=== PATIENT | male | born 1975 | race Caucasian/White ===

== ENCOUNTER 2018-01-05 13:50 | Inpatient (IN) | payer OTHER ==
[2018-01-05 14:40] LABS: ADD MAN DIFF? NO
[2018-01-05 14:47] LABS: BASOPHILS % 0.2 % (0.0-2.0); EOSINOPHILS # 0.1 10^3/ul (0.0-0.5); EOSINOPHILS % 1.1 % (0.0-7.0); HEMOGLOBIN 11.3 g/dl (14.0-18.0); LYMPHOCYTES # 1.1 10^3/ul (0.8-2.9); LYMPHOCYTES % 9.7 % (15.0-51.0); MEAN CORPUSCULAR HEMOGLOBIN 24.8 pg (29.0-33.0); MEAN CORPUSCULAR HGB CONC 32.3 g/dl (32.0-37.0); MEAN CORPUSCULAR VOLUME 76.8 fl (82.0-101.0); MEAN PLATELET VOLUME 8.6 fl (7.4-10.4); MONOCYTE # 0.8 10^3/ul (0.3-0.9); MONOCYTES % 7.5 % (0.0-11.0); NEUTROPHIL # 8.8 10^3/ul (1.6-7.5); PLATELET COUNT 491 10^3/UL (140-415); RED BLOOD COUNT 4.56 10^6/ul (4.70-6.10); RED CELL DISTRIBUTION WIDTH 14.7 % (11.5-14.5)
[2018-01-05 14:47] LABS: WHITE BLOOD COUNT 10.8 10^3/ul (4.8-10.8)
[2018-01-05 15:08] LABS: LACTIC ACID 1.1 mmol/L (0.5-2.0)
[2018-01-05 15:08] LABS: ALANINE AMINOTRANSFERASE 46 IU/L (13-69); ALBUMIN 4.2 g/dl (3.3-4.9); ALBUMIN/GLOBULIN RATIO 0.93; ALKALINE PHOSPHATASE 135 IU/L (42-121); ANION GAP 17 (8-16); ASPARTATE AMINO TRANSFERASE 35 IU/L (15-46); BILIRUBIN,INDIRECT 0.8 mg/dl (0-1.1); BILIRUBIN,TOTAL 0.8 mg/dl (0.2-1.3); BLOOD UREA NITROGEN 14 mg/dl (7-20); CALCIUM 9.1 mg/dl (8.4-10.2); CARBON DIOXIDE 26 mmol/L (21-31); CHLORIDE 99 mmol/L (97-110); CREATININE 0.72 mg/dl (0.61-1.24); GLUCOSE 108 mg/dl (70-220); POTASSIUM 3.8 mmol/L (3.5-5.1); SODIUM 138 mmol/L (135-144); TOTAL PROTEIN 8.7 g/dl (6.1-8.1)
[2018-01-05 15:14] LABS: INR 1.08; PROTIME 14.1 Sec (11.9-14.9); PT RATIO 1.1
[2018-01-05 15:15] LABS: PARTIAL THROMBOPLASTIN TIME 31.1 Sec (25.0-35.0)
[2018-01-05 15:20] LABS: B-TYPE NATRIURETIC PEPTIDE 42 PG/ML (0-125); TROPONIN-I < 0.010 ng/ml (0.000-0.120)
[2018-01-05] MEDS: CEFTRIAXONE 1 GM/50 ML (PMX) 50 ML IVPB (15:28)
[2018-01-05] MEDS ORDERED: PIPER-TAZO 3.375 GM IV (PMX) 100 ML IVPB (15:30)
[2018-01-05] MEDS ORDERED: NACL 0.9% 3 ML SYG IV (16:00)
[2018-01-05] MEDS ORDERED: ONDANSETRON 4 MG INJ IV (16:00)
[2018-01-05] MEDS ORDERED: MAGNESIUM HYDROXIDE 30ML CUP PO (16:00)
[2018-01-05] MEDS ORDERED: LORAZEPAM 0.5 MG TAB PO (16:00)
[2018-01-05] MEDS ORDERED: DOCUSATE SODIUM 100 MG CAP PO (16:00)
[2018-01-05] MEDS: VANCOMYCIN 1 GM (PMX) 250 ML IVPB ×2 (16:00→20:32)
[2018-01-05] MEDS ORDERED: VANCOMYCIN IV PER PHARMACY XX (16:00)
[2018-01-05] MEDS: PIPER-TAZO 3.375 GM IV (PMX) 100 ML IVPB ×2 (18:00→23:41)
[2018-01-05] MEDS: morphine 2 MG INJ IV (18:13)
[2018-01-05] MEDS: ACETAMINOPHEN 325 MG TAB PO (18:13)
[2018-01-05 18:46] LABS: LACTIC ACID 1.3 mmol/L (0.5-2.0)
[2018-01-05 19:28] LABS: ADD UMIC YES; UR ASCORBIC ACID NEGATIVE (NEGATIVE); UR BILIRUBIN (Dip) NEGATIVE (NEGATIVE); UR BLOOD (Dip) 1+ mg/dL (NEGATIVE); UR CLARITY SLIGHTLY CLOUDY (CLEAR); UR COLOR YELLOW (YELLOW); UR GLUCOSE (Dip) NEGATIVE (NEGATIVE); UR KETONES (Dip) NEGATIVE (NEGATIVE); UR LEUKOCYTE ESTERASE (Dip) TRACE Leu/ul (NEGATIVE); UR NITRITE (Dip) NEGATIVE (NEGATIVE); UR RBC 2 /HPF (0-5); UR SPECIFIC GRAVITY (Dip) 1.014 (1.003-1.030); UR SQUAMOUS EPITHELIAL CELL FEW /HPF (FEW); UR TOTAL PROTEIN (Dip) NEGATIVE (NEGATIVE); UR UROBILINOGEN (Dip) NEGATIVE (NEGATIVE); UR WBC 6 /HPF (0-5)
[2018-01-05] MEDS: SOD CHLORIDE 0.9% 1,000 ML IV (20:52)
[2018-01-05] MEDS: BACLOFEN 10 MG TAB PO (21:22)
[2018-01-05] MEDS: GABAPENTIN 300 MG CAP PO (21:22)
[2018-01-05] MEDS: HEPARIN 5,000 UNIT/0.5 ML VIAL SC (21:26)
[2018-01-05 22:04] LABS: LACTIC ACID 0.9 mmol/L (0.5-2.0)
[2018-01-06] MEDS: SOD CHLORIDE 0.9% 1,000 ML IV ×3 (04:00→21:42)
[2018-01-06] MEDS: PIPER-TAZO 3.375 GM IV (PMX) 100 ML IVPB ×4 (05:18→23:59)
[2018-01-06] MEDS: HEPARIN 5,000 UNIT/0.5 ML VIAL SC ×3 (05:26→21:34)
[2018-01-06] MEDS: VANCOMYCIN 1.25 GM in SOD CHLORIDE 0.9% 250 ML IVPB (05:56)
[2018-01-06] MEDS: ASCORBIC ACID 500 MG TAB PO (09:23)
[2018-01-06] MEDS: BACLOFEN 10 MG TAB PO ×3 (09:23→20:46)
[2018-01-06] MEDS: SILVER SULFADIAZINE 1% 25 GM CR TOP (09:23)
[2018-01-06] MEDS: ZINC SULFATE 220 MG CAP PO (09:23)
[2018-01-06] MEDS: GABAPENTIN 300 MG CAP PO ×3 (09:23→20:46)
[2018-01-06 10:48] LABS: ADD MAN DIFF? NO
[2018-01-06 10:52] LABS: WHITE BLOOD COUNT 6.8 10^3/ul (4.8-10.8)
[2018-01-06 10:52] LABS: BASOPHILS % 0.4 % (0.0-2.0); EOSINOPHILS # 0.2 10^3/ul (0.0-0.5); EOSINOPHILS % 3.5 % (0.0-7.0); HEMATOCRIT 29.5 % (42.0-52.0); HEMOGLOBIN 9.3 g/dl (14.0-18.0); LYMPHOCYTES # 0.7 10^3/ul (0.8-2.9); LYMPHOCYTES % 9.5 % (15.0-51.0); MEAN CORPUSCULAR HEMOGLOBIN 23.8 pg (29.0-33.0); MEAN CORPUSCULAR HGB CONC 31.5 g/dl (32.0-37.0); MEAN CORPUSCULAR VOLUME 75.6 fl (82.0-101.0); MEAN PLATELET VOLUME 8.9 fl (7.4-10.4); MONOCYTE # 0.6 10^3/ul (0.3-0.9); NEUTROPHIL # 5.3 10^3/ul (1.6-7.5); NEUTROPHILS % 77.2 % (39.0-77.0); PLATELET COUNT 422 10^3/UL (140-415); RED CELL DISTRIBUTION WIDTH 14.9 % (11.5-14.5)
[2018-01-06] MEDS ORDERED: COLLAGENASE 30 GM TUBE TOP ×2 (11:00→12:00)
[2018-01-06] MEDS: COLLAGENASE 5 GM (UD JAR) TOP (11:00)
[2018-01-06] MEDS ORDERED: COLLAGENASE 5 GM (UD JAR) TOP (11:00)
[2018-01-06] MEDS ORDERED: PENDING SANTYL ORDER FOR WOUND CARE XX (11:00)
[2018-01-06 11:19] LABS: ALANINE AMINOTRANSFERASE 38 IU/L (13-69); ALBUMIN 3.2 g/dl (3.3-4.9); ALBUMIN/GLOBULIN RATIO 0.84; ALKALINE PHOSPHATASE 101 IU/L (42-121); ANION GAP 14 (8-16); ASPARTATE AMINO TRANSFERASE 23 IU/L (15-46); BILIRUBIN,INDIRECT 0.3 mg/dl (0-1.1); BILIRUBIN,TOTAL 0.3 mg/dl (0.2-1.3); BLOOD UREA NITROGEN 10 mg/dl (7-20); CALCIUM 8.3 mg/dl (8.4-10.2); CARBON DIOXIDE 25 mmol/L (21-31); CHLORIDE 106 mmol/L (97-110); CREATININE 0.63 mg/dl (0.61-1.24); GLUCOSE 118 mg/dl (70-220); MAGNESIUM 1.9 mg/dl (1.7-2.5); POTASSIUM 3.4 mmol/L (3.5-5.1); SODIUM 142 mmol/L (135-144)
[2018-01-06] MEDS: VANCOMYCIN 1.75 GM in SOD CHLORIDE 0.9% 500 ML IVPB (16:32)
[2018-01-06] MEDS: SODIUM HYPOCHLORITE 0.125% 473 ML BTL IRR (20:46)
[2018-01-07] MEDS: VANCOMYCIN 1.75 GM in SOD CHLORIDE 0.9% 500 ML IVPB ×2 (00:32→08:59)
[2018-01-07] MEDS: PIPER-TAZO 3.375 GM IV (PMX) 100 ML IVPB ×3 (05:24→18:00)
[2018-01-07] MEDS: HEPARIN 5,000 UNIT/0.5 ML VIAL SC ×3 (05:25→21:01)
[2018-01-07] MEDS ORDERED: LIDOCAINE 2% (SDV) 5 ML INJ (07:00)
[2018-01-07] MEDS ORDERED: PROPOFOL 200 MG INJ (07:00)
[2018-01-07] MEDS: SOD CHLORIDE 0.9% 1,000 ML IV ×2 (07:38→16:18)
[2018-01-07 08:07] LABS: ADD MAN DIFF? NO
[2018-01-07 08:17] LABS: BASOPHILS % 0.3 % (0.0-2.0); EOSINOPHILS # 0.3 10^3/ul (0.0-0.5); EOSINOPHILS % 4.1 % (0.0-7.0); HEMATOCRIT 29.3 % (42.0-52.0); HEMOGLOBIN 9.1 g/dl (14.0-18.0); LYMPHOCYTES # 0.8 10^3/ul (0.8-2.9); LYMPHOCYTES % 13.5 % (15.0-51.0); MEAN CORPUSCULAR HGB CONC 31.1 g/dl (32.0-37.0); MEAN CORPUSCULAR VOLUME 77.3 fl (82.0-101.0); MONOCYTE # 0.4 10^3/ul (0.3-0.9); MONOCYTES % 7.2 % (0.0-11.0); NEUTROPHIL # 4.6 10^3/ul (1.6-7.5); NEUTROPHILS % 74.6 % (39.0-77.0); PLATELET COUNT 430 10^3/UL (140-415); RED BLOOD COUNT 3.79 10^6/ul (4.70-6.10); RED CELL DISTRIBUTION WIDTH 15.1 % (11.5-14.5)
[2018-01-07 08:17] LABS: WHITE BLOOD COUNT 6.2 10^3/ul (4.8-10.8)
[2018-01-07] MEDS ORDERED: POLYMYXIN/BACITRACIN 1L IRRIG (08:27)
[2018-01-07 08:51] LABS: VANCOMYCIN,TROUGH 17.8 ug/ml (10.0-20.0)
[2018-01-07 08:56] LABS: ANION GAP 11 (8-16); BLOOD UREA NITROGEN 8 mg/dl (7-20); CALCIUM 8.1 mg/dl (8.4-10.2); CARBON DIOXIDE 23 mmol/L (21-31); CHLORIDE 110 mmol/L (97-110); CREATININE 0.62 mg/dl (0.61-1.24); GLUCOSE 109 mg/dl (70-220); MAGNESIUM 1.8 mg/dl (1.7-2.5); PHOSPHORUS 3.6 mg/dl (2.5-4.9); POTASSIUM 3.5 mmol/L (3.5-5.1); SODIUM 140 mmol/L (135-144)
[2018-01-07] MEDS: ZINC SULFATE 220 MG CAP PO (09:00)
[2018-01-07] MEDS: GABAPENTIN 300 MG CAP PO ×3 (09:00→21:00)
[2018-01-07] MEDS: BACLOFEN 10 MG TAB PO ×3 (09:00→21:00)
[2018-01-07] MEDS: COLLAGENASE 5 GM (UD JAR) TOP (09:00)
[2018-01-07] MEDS: ASCORBIC ACID 500 MG TAB PO (09:00)
[2018-01-07] MEDS: SILVER SULFADIAZINE 1% 25 GM CR TOP (09:02)
[2018-01-07] MEDS: SODIUM HYPOCHLORITE 0.125% 473 ML BTL IRR ×2 (09:03→21:25)
[2018-01-07] MEDS: morphine 2 MG INJ IV ×2 (11:19→18:16)
[2018-01-07] MEDS ORDERED: PROPOFOL 20 ML (12:46)
[2018-01-07] MEDS ORDERED: FENTAnyl 50 MCG/ML VIAL ×2 (12:46→14:11)
[2018-01-07] MEDS ORDERED: MIDAZOLAM 1 MG/ML 2 ML INJ (12:46)
[2018-01-07] MEDS ORDERED: METOCLOPRAMIDE 10 MG INJ IV (15:00)
[2018-01-07] MEDS ORDERED: LABETALOL HCL 20MG INJ IV (15:00)
[2018-01-07] MEDS ORDERED: ONDANSETRON 4 MG INJ IV (15:00)
[2018-01-07] MEDS ORDERED: HYDROmorphONE 1 MG/5 ML IV SYRINGE IV (15:00)
[2018-01-07] MEDS ORDERED: hydrALAzine 20 MG INJ IV (15:00)
[2018-01-07] MEDS ORDERED: KETOROLAC 15 MG INJ IV (15:00)
[2018-01-07] MEDS ORDERED: MEPERIDINE 25 MG INJ IV (15:00)
[2018-01-07] MEDS ORDERED: FENTAnyl 50 MCG/ML VIAL IV (15:00)
[2018-01-07] MEDS ORDERED: DIPHENHYDRAMINE 50 MG INJ IV (15:00)
[2018-01-07] MEDS ORDERED: IPRATROPIUM (NEB) 0.5 MG/2.5 ML AMP HHN (15:00)
[2018-01-07] MEDS: morphine LIQ (10 MG/5 ML) CUP PO (18:23)
[2018-01-07] MEDS: VANCOMYCIN 1.5 GM in SOD CHLORIDE 0.9% 250 ML IVPB (20:00)
[2018-01-07] MEDS: HYDROCODONE/APAP (5/325) TAB PO (21:26)
[2018-01-08] MEDS: VANCOMYCIN 1.5 GM in SOD CHLORIDE 0.9% 250 ML IVPB ×3 (04:05→20:33)
[2018-01-08 05:57] LABS: ADD MAN DIFF? NO
[2018-01-08] MEDS: HEPARIN 5,000 UNIT/0.5 ML VIAL SC ×3 (06:00→22:50)
[2018-01-08 06:01] LABS: BASOPHILS % 0.4 % (0.0-2.0); EOSINOPHILS # 0.3 10^3/ul (0.0-0.5); EOSINOPHILS % 6.5 % (0.0-7.0); HEMATOCRIT 28.5 % (42.0-52.0); LYMPHOCYTES % 22.4 % (15.0-51.0); MEAN CORPUSCULAR HEMOGLOBIN 24.7 pg (29.0-33.0); MEAN CORPUSCULAR HGB CONC 31.6 g/dl (32.0-37.0); MEAN CORPUSCULAR VOLUME 78.3 fl (82.0-101.0); MEAN PLATELET VOLUME 8.8 fl (7.4-10.4); MONOCYTE # 0.4 10^3/ul (0.3-0.9); NEUTROPHIL # 2.9 10^3/ul (1.6-7.5); NEUTROPHILS % 62.3 % (39.0-77.0); PLATELET COUNT 407 10^3/UL (140-415); RED BLOOD COUNT 3.64 10^6/ul (4.70-6.10)
[2018-01-08 06:01] LABS: WHITE BLOOD COUNT 4.6 10^3/ul (4.8-10.8)
[2018-01-08 06:26] LABS: ANION GAP 8 (8-16); BLOOD UREA NITROGEN 6 mg/dl (7-20); CALCIUM 7.9 mg/dl (8.4-10.2); CARBON DIOXIDE 27 mmol/L (21-31); CHLORIDE 110 mmol/L (97-110); CREATININE 0.63 mg/dl (0.61-1.24); GLUCOSE 90 mg/dl (70-220); MAGNESIUM 1.8 mg/dl (1.7-2.5); PHOSPHORUS 4.2 mg/dl (2.5-4.9); POTASSIUM 3.8 mmol/L (3.5-5.1); SODIUM 141 mmol/L (135-144)
[2018-01-08] MEDS: PIPER-TAZO 3.375 GM IV (PMX) 100 ML IVPB ×4 (06:56→18:20)
[2018-01-08] MEDS: SODIUM HYPOCHLORITE 0.125% 473 ML BTL IRR ×2 (09:00→21:00)
[2018-01-08] MEDS: BACLOFEN 10 MG TAB PO ×3 (10:03→21:00)
[2018-01-08] MEDS: ZINC SULFATE 220 MG CAP PO (10:03)
[2018-01-08] MEDS: GABAPENTIN 300 MG CAP PO ×3 (10:03→21:00)
[2018-01-08] MEDS: ASCORBIC ACID 500 MG TAB PO (10:04)
[2018-01-08] MEDS: SILVER SULFADIAZINE 1% 25 GM CR TOP (10:04)
[2018-01-08] MEDS: COLLAGENASE 5 GM (UD JAR) TOP (10:04)
[2018-01-08] MEDS: HYDROCODONE/APAP (5/325) TAB PO (13:29)
[2018-01-09] MEDS: PIPER-TAZO 3.375 GM IV (PMX) 100 ML IVPB ×3 (00:16→12:34)
[2018-01-09] MEDS: VANCOMYCIN 1.5 GM in SOD CHLORIDE 0.9% 250 ML IVPB ×2 (03:34→12:34)
[2018-01-09] MEDS: HEPARIN 5,000 UNIT/0.5 ML VIAL SC ×3 (06:00→21:17)
[2018-01-09] MEDS: GABAPENTIN 300 MG CAP PO ×3 (08:27→21:10)
[2018-01-09] MEDS: COLLAGENASE 5 GM (UD JAR) TOP (08:28)
[2018-01-09] MEDS: ZINC SULFATE 220 MG CAP PO (08:28)
[2018-01-09] MEDS: BACLOFEN 10 MG TAB PO ×3 (08:28→21:10)
[2018-01-09] MEDS: ASCORBIC ACID 500 MG TAB PO (08:28)
[2018-01-09] MEDS: SODIUM HYPOCHLORITE 0.125% 473 ML BTL IRR ×2 (08:30→21:11)
[2018-01-09] MEDS: SILVER SULFADIAZINE 1% 25 GM CR TOP (08:31)
[2018-01-09 14:00] LABS: ADD MAN DIFF? NO
[2018-01-09 14:05] LABS: BASOPHILS % 0.8 % (0.0-2.0); EOSINOPHILS # 0.3 10^3/ul (0.0-0.5); EOSINOPHILS % 7.1 % (0.0-7.0); HEMATOCRIT 29.2 % (42.0-52.0); LYMPHOCYTES # 0.9 10^3/ul (0.8-2.9); LYMPHOCYTES % 25.6 % (15.0-51.0); MEAN CORPUSCULAR HEMOGLOBIN 23.7 pg (29.0-33.0); MEAN CORPUSCULAR HGB CONC 30.8 g/dl (32.0-37.0); MEAN PLATELET VOLUME 8.5 fl (7.4-10.4); MONOCYTE # 0.3 10^3/ul (0.3-0.9); MONOCYTES % 8.4 % (0.0-11.0); NEUTROPHIL # 2.1 10^3/ul (1.6-7.5); NEUTROPHILS % 57.8 % (39.0-77.0); PLATELET COUNT 419 10^3/UL (140-415); RED BLOOD COUNT 3.79 10^6/ul (4.70-6.10); RED CELL DISTRIBUTION WIDTH 15.2 % (11.5-14.5)
[2018-01-09 14:05] LABS: WHITE BLOOD COUNT 3.7 10^3/ul (4.8-10.8)
[2018-01-09 14:19] LABS: ANION GAP 10 (8-16); BLOOD UREA NITROGEN 6 mg/dl (7-20); CALCIUM 8.2 mg/dl (8.4-10.2); CARBON DIOXIDE 28 mmol/L (21-31); CHLORIDE 108 mmol/L (97-110); CREATININE 0.71 mg/dl (0.61-1.24); GLUCOSE 97 mg/dl (70-220); MAGNESIUM 1.9 mg/dl (1.7-2.5); PHOSPHORUS 3.9 mg/dl (2.5-4.9); POTASSIUM 4.3 mmol/L (3.5-5.1); SODIUM 142 mmol/L (135-144)
[2018-01-09] MEDS: HYDROCODONE/APAP (5/325) TAB PO ×2 (15:30→21:21)
[2018-01-09 19:37] LABS: VANCOMYCIN,TROUGH 22.3 ug/ml (10.0-20.0)
[2018-01-09] MEDS: CIPROFLOXACIN 400MG/D5W 200 ML IVPB (21:11)
[2018-01-09] MEDS: VANCOMYCIN 1.25 GM in SOD CHLORIDE 0.9% 250 ML IVPB (23:13)
[2018-01-10] MEDS: HYDROCODONE/APAP (5/325) TAB PO ×3 (04:51→22:11)
[2018-01-10] MEDS: HEPARIN 5,000 UNIT/0.5 ML VIAL SC ×3 (06:24→21:36)
[2018-01-10] MEDS: VANCOMYCIN 1.25 GM in SOD CHLORIDE 0.9% 250 ML IVPB ×2 (06:32→15:25)
[2018-01-10] MEDS: COLLAGENASE 5 GM (UD JAR) TOP (09:00)
[2018-01-10] MEDS: ASCORBIC ACID 500 MG TAB PO (09:09)
[2018-01-10] MEDS: BACLOFEN 10 MG TAB PO ×3 (09:09→20:16)
[2018-01-10] MEDS: ZINC SULFATE 220 MG CAP PO (09:09)
[2018-01-10] MEDS: GABAPENTIN 300 MG CAP PO ×3 (09:09→20:16)
[2018-01-10] MEDS: SILVER SULFADIAZINE 1% 25 GM CR TOP (09:10)
[2018-01-10] MEDS: SODIUM HYPOCHLORITE 0.125% 473 ML BTL IRR ×2 (09:11→20:17)
[2018-01-10] MEDS: CIPROFLOXACIN 400MG/D5W 200 ML IVPB ×2 (10:21→20:17)
[2018-01-10] MEDS: MEROPENEM 500MG/50 ML (PMX) 50 ML IVPB ×2 (13:50→21:35)
[2018-01-11] MEDS: VANCOMYCIN 1.25 GM in SOD CHLORIDE 0.9% 250 ML IVPB ×2 (01:28→06:14)
[2018-01-11] MEDS: MEROPENEM 500MG/50 ML (PMX) 50 ML IVPB ×3 (05:25→23:08)
[2018-01-11] MEDS: HEPARIN 5,000 UNIT/0.5 ML VIAL SC ×3 (06:00→21:31)
[2018-01-11] MEDS: HYDROCODONE/APAP (5/325) TAB PO ×3 (06:17→20:06)
[2018-01-11] MEDS: SODIUM HYPOCHLORITE 0.125% 473 ML BTL IRR ×2 (07:23→20:07)
[2018-01-11] MEDS: COLLAGENASE 5 GM (UD JAR) TOP (08:20)
[2018-01-11] MEDS: SILVER SULFADIAZINE 1% 25 GM CR TOP (08:39)
[2018-01-11] MEDS: ZINC SULFATE 220 MG CAP PO (08:40)
[2018-01-11] MEDS: BACLOFEN 10 MG TAB PO ×3 (08:40→20:06)
[2018-01-11] MEDS: ASCORBIC ACID 500 MG TAB PO (08:40)
[2018-01-11] MEDS: GABAPENTIN 300 MG CAP PO ×3 (08:41→20:06)
[2018-01-11] MEDS: CIPROFLOXACIN 400MG/D5W 200 ML IVPB ×2 (10:05→21:29)
[2018-01-11 11:47] LABS: ADD MAN DIFF? NO
[2018-01-11 11:49] LABS: BASOPHILS % 0.8 % (0.0-2.0); EOSINOPHILS # 0.3 10^3/ul (0.0-0.5); EOSINOPHILS % 7.7 % (0.0-7.0); HEMATOCRIT 33.4 % (42.0-52.0); HEMOGLOBIN 10.4 g/dl (14.0-18.0); LYMPHOCYTES # 1.3 10^3/ul (0.8-2.9); LYMPHOCYTES % 33.1 % (15.0-51.0); MEAN CORPUSCULAR HEMOGLOBIN 24.2 pg (29.0-33.0); MEAN CORPUSCULAR HGB CONC 31.1 g/dl (32.0-37.0); MEAN CORPUSCULAR VOLUME 77.9 fl (82.0-101.0); MEAN PLATELET VOLUME 8.2 fl (7.4-10.4); MONOCYTE # 0.3 10^3/ul (0.3-0.9); MONOCYTES % 6.9 % (0.0-11.0); PLATELET COUNT 463 10^3/UL (140-415); RED BLOOD COUNT 4.29 10^6/ul (4.70-6.10); RED CELL DISTRIBUTION WIDTH 15.2 % (11.5-14.5)
[2018-01-11 11:49] LABS: WHITE BLOOD COUNT 3.9 10^3/ul (4.8-10.8)
[2018-01-11 12:17] LABS: IRON 32 ug/dl (35-150)
[2018-01-11 12:19] LABS: ANION GAP 8 (8-16); BLOOD UREA NITROGEN 8 mg/dl (7-20); CALCIUM 8.5 mg/dl (8.4-10.2); CARBON DIOXIDE 29 mmol/L (21-31); CHLORIDE 107 mmol/L (97-110); CREATININE 0.61 mg/dl (0.61-1.24); GLUCOSE 87 mg/dl (70-220); POTASSIUM 4.1 mmol/L (3.5-5.1); SODIUM 140 mmol/L (135-144)
[2018-01-11 12:27] LABS: % IRON SATURATION 12 % SAT (22-52); TOTAL IRON BINDING CAPACITY 269 ug/dl (241-421)
[2018-01-11 12:54] LABS: FERRITIN 81.5 ng/ml (17.9-464.0)
[2018-01-11] MEDS: VANCOMYCIN 1.5 GM in SOD CHLORIDE 0.9% 250 ML IVPB (18:19)
[2018-01-12] MEDS: MEROPENEM 500MG/50 ML (PMX) 50 ML IVPB ×3 (05:12→23:45)
[2018-01-12] MEDS: HEPARIN 5,000 UNIT/0.5 ML VIAL SC ×3 (06:00→22:00)
[2018-01-12] MEDS: VANCOMYCIN 1.5 GM in SOD CHLORIDE 0.9% 250 ML IVPB ×2 (06:29→18:42)
[2018-01-12] MEDS: HYDROCODONE/APAP (5/325) TAB PO ×2 (06:30→20:53)
[2018-01-12] MEDS: BACLOFEN 10 MG TAB PO ×3 (08:27→20:53)
[2018-01-12] MEDS: ASCORBIC ACID 500 MG TAB PO (08:28)
[2018-01-12] MEDS: GABAPENTIN 300 MG CAP PO ×3 (08:28→20:53)
[2018-01-12] MEDS: SILVER SULFADIAZINE 1% 25 GM CR TOP (08:30)
[2018-01-12] MEDS: COLLAGENASE 5 GM (UD JAR) TOP (08:31)
[2018-01-12] MEDS: SODIUM HYPOCHLORITE 0.125% 473 ML BTL IRR (08:32)
[2018-01-12] MEDS: ZINC SULFATE 220 MG CAP PO (08:36)
[2018-01-12] MEDS: CIPROFLOXACIN 400MG/D5W 200 ML IVPB ×2 (09:56→22:36)
[2018-01-12] MEDS: LIDOCAINE 1% (MPF) 5 ML VIAL SC (17:10)
[2018-01-13 05:30] LABS: ADD MAN DIFF? NO
[2018-01-13 05:35] LABS: WHITE BLOOD COUNT 5.1 10^3/ul (4.8-10.8)
[2018-01-13 05:36] LABS: BASOPHILS % 0.6 % (0.0-2.0); EOSINOPHILS # 0.2 10^3/ul (0.0-0.5); EOSINOPHILS % 3.9 % (0.0-7.0); HEMATOCRIT 32.3 % (42.0-52.0); HEMOGLOBIN 9.9 g/dl (14.0-18.0); LYMPHOCYTES # 1.3 10^3/ul (0.8-2.9); LYMPHOCYTES % 25.4 % (15.0-51.0); MEAN CORPUSCULAR HEMOGLOBIN 23.6 pg (29.0-33.0); MEAN CORPUSCULAR HGB CONC 30.7 g/dl (32.0-37.0); MEAN CORPUSCULAR VOLUME 76.9 fl (82.0-101.0); MEAN PLATELET VOLUME 8.5 fl (7.4-10.4); MONOCYTE # 0.4 10^3/ul (0.3-0.9); MONOCYTES % 8.7 % (0.0-11.0); NEUTROPHIL # 3.1 10^3/ul (1.6-7.5); PLATELET COUNT 448 10^3/UL (140-415); RED CELL DISTRIBUTION WIDTH 15.4 % (11.5-14.5)
[2018-01-13] MEDS: MEROPENEM 500MG/50 ML (PMX) 50 ML IVPB ×3 (05:38→22:42)
[2018-01-13] MEDS: HEPARIN 5,000 UNIT/0.5 ML VIAL SC ×3 (05:43→22:46)
[2018-01-13 06:04] LABS: IRON 17 ug/dl (35-150)
[2018-01-13 06:05] LABS: ANION GAP 9 (8-16); BLOOD UREA NITROGEN 12 mg/dl (7-20); CALCIUM 8.7 mg/dl (8.4-10.2); CARBON DIOXIDE 29 mmol/L (21-31); CHLORIDE 106 mmol/L (97-110); CREATININE 0.64 mg/dl (0.61-1.24); GLUCOSE 90 mg/dl (70-220); POTASSIUM 4.4 mmol/L (3.5-5.1); SODIUM 140 mmol/L (135-144)
[2018-01-13 06:14] LABS: % IRON SATURATION 6 % SAT (22-52); TOTAL IRON BINDING CAPACITY 290 ug/dl (241-421)
[2018-01-13] MEDS: VANCOMYCIN 1.5 GM in SOD CHLORIDE 0.9% 250 ML IVPB ×2 (06:27→20:05)
[2018-01-13 06:39] LABS: FERRITIN 61.4 ng/ml (17.9-464.0)
[2018-01-13] MEDS: COLLAGENASE 5 GM (UD JAR) TOP (09:00)
[2018-01-13] MEDS: CIPROFLOXACIN 400MG/D5W 200 ML IVPB ×2 (09:06→21:22)
[2018-01-13] MEDS: SODIUM HYPOCHLORITE 0.125% 473 ML BTL IRR (09:06)
[2018-01-13] MEDS: GABAPENTIN 300 MG CAP PO ×3 (09:06→20:03)
[2018-01-13] MEDS: ASCORBIC ACID 500 MG TAB PO (09:07)
[2018-01-13] MEDS: BACLOFEN 10 MG TAB PO ×3 (09:07→20:03)
[2018-01-13] MEDS: SILVER SULFADIAZINE 1% 25 GM CR TOP (09:07)
[2018-01-13] MEDS: ZINC SULFATE 220 MG CAP PO (09:07)
[2018-01-13] MEDS: SOD FERRIC GLUC COMPLX 125 MG in SOD CHLORIDE 0.9% 100 ML IVPB (17:38)
[2018-01-13 17:51] LABS: VANCOMYCIN,TROUGH 14.1 ug/ml (10.0-20.0)
[2018-01-13] MEDS: HYDROCODONE/APAP (5/325) TAB PO (23:44)
[2018-01-14] MEDS: MEROPENEM 500MG/50 ML (PMX) 50 ML IVPB ×3 (06:00→22:10)
[2018-01-14] MEDS: HEPARIN 5,000 UNIT/0.5 ML VIAL SC ×3 (06:08→22:12)
[2018-01-14] MEDS: VANCOMYCIN 1.5 GM in SOD CHLORIDE 0.9% 250 ML IVPB ×2 (06:43→18:04)
[2018-01-14] MEDS: SODIUM HYPOCHLORITE 0.125% 473 ML BTL IRR ×2 (06:43→08:44)
[2018-01-14] MEDS: CIPROFLOXACIN 400MG/D5W 200 ML IVPB ×3 (08:40→21:12)
[2018-01-14] MEDS: BACLOFEN 10 MG TAB PO ×3 (08:41→20:10)
[2018-01-14] MEDS: ASCORBIC ACID 500 MG TAB PO (08:41)
[2018-01-14] MEDS: GABAPENTIN 300 MG CAP PO ×3 (08:41→20:10)
[2018-01-14] MEDS: ZINC SULFATE 220 MG CAP PO (08:42)
[2018-01-14] MEDS: COLLAGENASE 5 GM (UD JAR) TOP (08:42)
[2018-01-14] MEDS: SILVER SULFADIAZINE 1% 25 GM CR TOP (08:44)
[2018-01-14] MEDS: SOD FERRIC GLUC COMPLX 125 MG in SOD CHLORIDE 0.9% 100 ML IVPB (16:00)
[2018-01-15] MEDS: MEROPENEM 500MG/50 ML (PMX) 50 ML IVPB ×3 (05:29→22:26)
[2018-01-15] MEDS: HEPARIN 5,000 UNIT/0.5 ML VIAL SC ×3 (05:34→22:25)
[2018-01-15] MEDS: VANCOMYCIN 1.5 GM in SOD CHLORIDE 0.9% 250 ML IVPB ×2 (06:18→17:50)
[2018-01-15] MEDS: CIPROFLOXACIN 400MG/D5W 200 ML IVPB ×2 (08:23→20:50)
[2018-01-15] MEDS: BACLOFEN 10 MG TAB PO ×3 (08:23→20:51)
[2018-01-15] MEDS: GABAPENTIN 300 MG CAP PO ×3 (08:23→20:51)
[2018-01-15] MEDS: ASCORBIC ACID 500 MG TAB PO (08:23)
[2018-01-15] MEDS: ZINC SULFATE 220 MG CAP PO (08:23)
[2018-01-15] MEDS: SODIUM HYPOCHLORITE 0.125% 473 ML BTL IRR (08:23)
[2018-01-15] MEDS: SILVER SULFADIAZINE 1% 25 GM CR TOP (08:24)
[2018-01-15] MEDS: COLLAGENASE 5 GM (UD JAR) TOP (08:24)
[2018-01-15] MEDS: HYDROCODONE/APAP (5/325) TAB PO (13:11)
[2018-01-15] MEDS: SOD FERRIC GLUC COMPLX 125 MG in SOD CHLORIDE 0.9% 100 ML IVPB (16:25)
[2018-01-16] MEDS: MEROPENEM 500MG/50 ML (PMX) 50 ML IVPB ×3 (05:31→22:00)
[2018-01-16] MEDS: HEPARIN 5,000 UNIT/0.5 ML VIAL SC ×3 (05:35→22:03)
[2018-01-16 06:14] LABS: ADD MAN DIFF? NO
[2018-01-16] MEDS: VANCOMYCIN 1.5 GM in SOD CHLORIDE 0.9% 250 ML IVPB ×2 (06:35→17:23)
[2018-01-16 06:42] LABS: BASOPHILS % 0.8 % (0.0-2.0); EOSINOPHILS # 0.2 10^3/ul (0.0-0.5); EOSINOPHILS % 4.8 % (0.0-7.0); HEMATOCRIT 32.3 % (42.0-52.0); HEMOGLOBIN 9.9 g/dl (14.0-18.0); LYMPHOCYTES # 1.5 10^3/ul (0.8-2.9); LYMPHOCYTES % 30.9 % (15.0-51.0); MEAN CORPUSCULAR HEMOGLOBIN 23.7 pg (29.0-33.0); MEAN CORPUSCULAR HGB CONC 30.7 g/dl (32.0-37.0); MEAN CORPUSCULAR VOLUME 77.3 fl (82.0-101.0); MEAN PLATELET VOLUME 8.8 fl (7.4-10.4); MONOCYTE # 0.4 10^3/ul (0.3-0.9); MONOCYTES % 7.4 % (0.0-11.0); NEUTROPHIL # 2.8 10^3/ul (1.6-7.5); NEUTROPHILS % 55.7 % (39.0-77.0); PLATELET COUNT 443 10^3/UL (140-415); RED BLOOD COUNT 4.18 10^6/ul (4.70-6.10)
[2018-01-16 06:50] LABS: ANION GAP 11 (8-16); BLOOD UREA NITROGEN 15 mg/dl (7-20); CALCIUM 8.9 mg/dl (8.4-10.2); CARBON DIOXIDE 27 mmol/L (21-31); CHLORIDE 106 mmol/L (97-110); CREATININE 0.65 mg/dl (0.61-1.24); GLUCOSE 90 mg/dl (70-220); PHOSPHORUS 4.5 mg/dl (2.5-4.9); POTASSIUM 4.2 mmol/L (3.5-5.1); SODIUM 140 mmol/L (135-144)
[2018-01-16] MEDS: ZINC SULFATE 220 MG CAP PO (09:15)
[2018-01-16] MEDS: BACLOFEN 10 MG TAB PO ×3 (09:15→20:59)
[2018-01-16] MEDS: GABAPENTIN 300 MG CAP PO ×3 (09:15→20:58)
[2018-01-16] MEDS: ASCORBIC ACID 500 MG TAB PO (09:15)
[2018-01-16] MEDS: SILVER SULFADIAZINE 1% 25 GM CR TOP (09:16)
[2018-01-16] MEDS: COLLAGENASE 5 GM (UD JAR) TOP (09:16)
[2018-01-16] MEDS: CIPROFLOXACIN 400MG/D5W 200 ML IVPB ×2 (09:16→20:59)
[2018-01-16] MEDS: SODIUM HYPOCHLORITE 0.125% 473 ML BTL IRR (09:16)
[2018-01-16] MEDS: HYDROCODONE/APAP (5/325) TAB PO (22:10)
[2018-01-17 05:37] LABS: ADD MAN DIFF? NO
[2018-01-17] MEDS: MEROPENEM 500MG/50 ML (PMX) 50 ML IVPB ×3 (05:40→23:28)
[2018-01-17] MEDS: HEPARIN 5,000 UNIT/0.5 ML VIAL SC ×3 (05:43→22:15)
[2018-01-17 05:46] LABS: WHITE BLOOD COUNT 5.9 10^3/ul (4.8-10.8)
[2018-01-17 05:46] LABS: BASOPHILS % 0.3 % (0.0-2.0); EOSINOPHILS # 0.2 10^3/ul (0.0-0.5); EOSINOPHILS % 2.9 % (0.0-7.0); HEMATOCRIT 33.6 % (42.0-52.0); HEMOGLOBIN 10.5 g/dl (14.0-18.0); LYMPHOCYTES # 1.3 10^3/ul (0.8-2.9); LYMPHOCYTES % 22.3 % (15.0-51.0); MEAN CORPUSCULAR HEMOGLOBIN 24.1 pg (29.0-33.0); MEAN CORPUSCULAR HGB CONC 31.3 g/dl (32.0-37.0); MEAN CORPUSCULAR VOLUME 77.1 fl (82.0-101.0); MEAN PLATELET VOLUME 8.6 fl (7.4-10.4); MONOCYTE # 0.5 10^3/ul (0.3-0.9); NEUTROPHIL # 3.9 10^3/ul (1.6-7.5); NEUTROPHILS % 66.2 % (39.0-77.0); PLATELET COUNT 409 10^3/UL (140-415); RED BLOOD COUNT 4.36 10^6/ul (4.70-6.10); RED CELL DISTRIBUTION WIDTH 15.9 % (11.5-14.5)
[2018-01-17 06:07] LABS: VANCOMYCIN,TROUGH 13.3 ug/ml (10.0-20.0)
[2018-01-17] MEDS: VANCOMYCIN 1.5 GM in SOD CHLORIDE 0.9% 250 ML IVPB ×2 (06:13→18:24)
[2018-01-17 06:21] LABS: ANION GAP 11 (8-16); BLOOD UREA NITROGEN 15 mg/dl (7-20); CARBON DIOXIDE 27 mmol/L (21-31); CHLORIDE 105 mmol/L (97-110); CREATININE 0.63 mg/dl (0.61-1.24); GLUCOSE 88 mg/dl (70-220); MAGNESIUM 1.9 mg/dl (1.7-2.5); PHOSPHORUS 4.2 mg/dl (2.5-4.9); POTASSIUM 4.2 mmol/L (3.5-5.1); SODIUM 139 mmol/L (135-144)
[2018-01-17] MEDS: CIPROFLOXACIN 400MG/D5W 200 ML IVPB ×2 (09:45→22:10)
[2018-01-17] MEDS: GABAPENTIN 300 MG CAP PO ×3 (09:47→22:11)
[2018-01-17] MEDS: ZINC SULFATE 220 MG CAP PO (09:47)
[2018-01-17] MEDS: ASCORBIC ACID 500 MG TAB PO (09:47)
[2018-01-17] MEDS: BACLOFEN 10 MG TAB PO ×3 (09:47→22:11)
[2018-01-17] MEDS: COLLAGENASE 5 GM (UD JAR) TOP (18:24)
[2018-01-17] MEDS: SODIUM HYPOCHLORITE 0.125% 473 ML BTL IRR (18:24)
[2018-01-17] MEDS: SILVER SULFADIAZINE 1% 25 GM CR TOP (18:25)
[2018-01-18] MEDS: MEROPENEM 500MG/50 ML (PMX) 50 ML IVPB ×3 (05:30→21:43)
[2018-01-18] MEDS: HEPARIN 5,000 UNIT/0.5 ML VIAL SC ×3 (05:38→21:45)
[2018-01-18 05:43] LABS: ADD MAN DIFF? NO
[2018-01-18 05:57] LABS: WHITE BLOOD COUNT 4.4 10^3/ul (4.8-10.8)
[2018-01-18 05:57] LABS: BASOPHILS % 0.5 % (0.0-2.0); EOSINOPHILS # 0.2 10^3/ul (0.0-0.5); EOSINOPHILS % 3.4 % (0.0-7.0); HEMATOCRIT 32.8 % (42.0-52.0); HEMOGLOBIN 10.5 g/dl (14.0-18.0); LYMPHOCYTES # 1.4 10^3/ul (0.8-2.9); LYMPHOCYTES % 31.4 % (15.0-51.0); MEAN CORPUSCULAR HEMOGLOBIN 24.6 pg (29.0-33.0); MEAN PLATELET VOLUME 8.6 fl (7.4-10.4); MONOCYTE # 0.4 10^3/ul (0.3-0.9); MONOCYTES % 7.9 % (0.0-11.0); NEUTROPHIL # 2.5 10^3/ul (1.6-7.5); NEUTROPHILS % 56.6 % (39.0-77.0); PLATELET COUNT 361 10^3/UL (140-415); RED BLOOD COUNT 4.26 10^6/ul (4.70-6.10); RED CELL DISTRIBUTION WIDTH 16.1 % (11.5-14.5)
[2018-01-18 06:34] LABS: ANION GAP 11 (8-16); BLOOD UREA NITROGEN 17 mg/dl (7-20); CARBON DIOXIDE 27 mmol/L (21-31); CHLORIDE 106 mmol/L (97-110); CREATININE 0.59 mg/dl (0.61-1.24); GLUCOSE 92 mg/dl (70-220); MAGNESIUM 1.9 mg/dl (1.7-2.5); PHOSPHORUS 4.4 mg/dl (2.5-4.9); POTASSIUM 4.2 mmol/L (3.5-5.1); SODIUM 140 mmol/L (135-144)
[2018-01-18] MEDS: VANCOMYCIN 1.5 GM in SOD CHLORIDE 0.9% 250 ML IVPB ×2 (06:40→18:05)
[2018-01-18] MEDS: COLLAGENASE 5 GM (UD JAR) TOP (09:36)
[2018-01-18] MEDS: BACLOFEN 10 MG TAB PO ×3 (09:36→20:43)
[2018-01-18] MEDS: ZINC SULFATE 220 MG CAP PO (09:36)
[2018-01-18] MEDS: CIPROFLOXACIN 400MG/D5W 200 ML IVPB (09:36)
[2018-01-18] MEDS: SILVER SULFADIAZINE 1% 25 GM CR TOP (09:36)
[2018-01-18] MEDS: SODIUM HYPOCHLORITE 0.125% 473 ML BTL IRR (09:37)
[2018-01-18] MEDS: GABAPENTIN 300 MG CAP PO ×3 (09:37→20:43)
[2018-01-18] MEDS: ASCORBIC ACID 500 MG TAB PO (09:37)
[2018-01-18] MEDS: CIPROFLOXACIN 500 MG TAB PO (18:05)
[2018-01-18] MEDS: HYDROCODONE/APAP (5/325) TAB PO (19:44)
[2018-01-19] MEDS: MEROPENEM 500MG/50 ML (PMX) 50 ML IVPB (05:32)
[2018-01-19] MEDS: CIPROFLOXACIN 500 MG TAB PO (05:32)
[2018-01-19] MEDS: HEPARIN 5,000 UNIT/0.5 ML VIAL SC (05:43)
[2018-01-19] MEDS: VANCOMYCIN 1.5 GM in SOD CHLORIDE 0.9% 250 ML IVPB (06:06)
[2018-01-19] MEDS: ZINC SULFATE 220 MG CAP PO (09:06)
[2018-01-19] MEDS: COLLAGENASE 5 GM (UD JAR) TOP (09:07)
[2018-01-19] MEDS: BACLOFEN 10 MG TAB PO (09:07)
[2018-01-19] MEDS: SODIUM HYPOCHLORITE 0.125% 473 ML BTL IRR (09:07)
[2018-01-19] MEDS: SILVER SULFADIAZINE 1% 25 GM CR TOP (09:07)
[2018-01-19] MEDS: ASCORBIC ACID 500 MG TAB PO (09:07)
[2018-01-19] MEDS: GABAPENTIN 300 MG CAP PO (09:07)
== END 2018-01-19 12:10 | DRG 853 ==
LOC: MS2 01-18 15:38 → E/R 13:50 → MS2 15:30
PROC: 0KBP0ZZ Excision of Left Hip Muscle, Open Approach (ICD-10-PCS; 2018-01-07 13:00)
PROC: 0JBQ0ZZ Excision of Right Foot Subcutaneous Tissue and Fascia, Open Approach (ICD-10-PCS; principal; 2018-01-07 13:44)
PROC: 0JBR0ZZ Excision of Left Foot Subcutaneous Tissue and Fascia, Open Approach (ICD-10-PCS; 2018-01-07 13:44)
PROC: 0JBQ0ZZ Excision of Right Foot Subcutaneous Tissue and Fascia, Open Approach (ICD-10-PCS; 2018-01-07 13:44)
PROC: 02HV33Z Insertion of Infusion Device into Superior Vena Cava, Percutaneous Approach (ICD-10-PCS; 2018-01-07 13:44)
PROC: B548ZZA Ultrasonography of Superior Vena Cava, Guidance (ICD-10-PCS; 2018-01-07 13:44)
DX: A41.9 Sepsis, unspecified organism (principal); L89.324 Pressure ulcer of left buttock, stage 4; L89.513 Pressure ulcer of right ankle, stage 3; L03.115 Cellulitis of right lower limb; I82.501 Chronic embolism and thrombosis of unspecified deep veins of right lower extremity; G82.20 Paraplegia, unspecified; M86.8X8 Other osteomyelitis, other site; Z68.41 Body mass index [BMI] 40.0-44.9, adult; B95.5 Unspecified streptococcus as the cause of diseases classified elsewhere; Z16.30 Resistance to unspecified antimicrobial drugs; T14.8XXS Other injury of unspecified body region, sequela; W34.00XS Accidental discharge from unspecified firearms or gun, sequela; I10 Essential (primary) hypertension; N31.9 Neuromuscular dysfunction of bladder, unspecified; M62.838 Other muscle spasm; F17.200 Nicotine dependence, unspecified, uncomplicated; Z95.828 Presence of other vascular implants and grafts; D50.9 Iron deficiency anemia, unspecified; D47.3 Essential (hemorrhagic) thrombocythemia; E66.01 Morbid (severe) obesity due to excess calories; B96.20 Unspecified Escherichia coli [E. coli] as the cause of diseases classified elsewhere; B96.4 Proteus (mirabilis) (morganii) as the cause of diseases classified elsewhere; B95.62 Methicillin resistant Staphylococcus aureus infection as the cause of diseases classified elsewhere; B96.5 Pseudomonas (aeruginosa) (mallei) (pseudomallei) as the cause of diseases classified elsewhere; L89.529 Pressure ulcer of left ankle, unspecified stage; L89.620 Pressure ulcer of left heel, unstageable; L89.610 Pressure ulcer of right heel, unstageable
CPT/HCPCS: 36569; 71045; 72192; 73630; 73630-LT; 76937; 80048; 80053; 80202; 81001; 82728; 83540; 83605; 83735; 83880; 84100; 84484; 85025; 85610; 85730; 87040; 87070; 87075; 87081; 87086; 88304; 93005; 93970; 96374; 97161; 99285-25

== ENCOUNTER 2018-03-23 18:54 | Inpatient (IN) | payer OTHER ==
[2018-03-23 19:38] LABS: ADD MAN DIFF? NO
[2018-03-23 19:43] LABS: BASOPHILS % 0.3 % (0.0-2.0); EOSINOPHILS # 0.1 10^3/ul (0.0-0.5); EOSINOPHILS % 0.5 % (0.0-7.0); HEMATOCRIT 30.9 % (42.0-52.0); HEMOGLOBIN 9.9 g/dl (14.0-18.0); LYMPHOCYTES % 10.1 % (15.0-51.0); MEAN CORPUSCULAR VOLUME 71.9 fl (82.0-101.0); MEAN PLATELET VOLUME 8.4 fl (7.4-10.4); MONOCYTE # 0.9 10^3/ul (0.3-0.9); MONOCYTES % 8.3 % (0.0-11.0); NEUTROPHIL # 8.2 10^3/ul (1.6-7.5); NEUTROPHILS % 80.5 % (39.0-77.0); PLATELET COUNT 437 10^3/UL (140-415); RED CELL DISTRIBUTION WIDTH 17.6 % (11.5-14.5)
[2018-03-23 19:43] LABS: WHITE BLOOD COUNT 10.2 10^3/ul (4.8-10.8)
[2018-03-23 20:01] LABS: ALANINE AMINOTRANSFERASE 19 IU/L (13-69); ALBUMIN 3.4 g/dl (3.3-4.9); ALKALINE PHOSPHATASE 134 IU/L (42-121); ANION GAP 11 (8-16); ASPARTATE AMINO TRANSFERASE 26 IU/L (15-46); BILIRUBIN,INDIRECT 0.5 mg/dl (0-1.1); BILIRUBIN,TOTAL 0.5 mg/dl (0.2-1.3); BLOOD UREA NITROGEN 9 mg/dl (7-20); CALCIUM 8.7 mg/dl (8.4-10.2); CARBON DIOXIDE 28 mmol/L (21-31); CHLORIDE 97 mmol/L (97-110); CREATININE 0.66 mg/dl (0.61-1.24); GLUCOSE 122 mg/dl (70-220); POTASSIUM 3.7 mmol/L (3.5-5.1); SODIUM 132 mmol/L (135-144); TOTAL PROTEIN 8.2 g/dl (6.1-8.1)
[2018-03-23 20:02] LABS: LACTIC ACID 1.1 mmol/L (0.5-2.0)
[2018-03-23 20:04] LABS: INR 1.15; PROTIME 14.9 Sec (11.9-14.9); PT RATIO 1.2
[2018-03-23 20:05] LABS: PARTIAL THROMBOPLASTIN TIME 34.5 Sec (23.0-35.0)
[2018-03-23 20:14] LABS: TROPONIN-I < 0.012 ng/ml (0.000-0.120)
[2018-03-23] MEDS: CEFEPIME 2GM/50 ML (PMX) 50 ML IVPB (20:18)
[2018-03-23] MEDS: ACETAMINOPHEN 325 MG TAB PO (20:18)
[2018-03-23] MEDS: SODIUM CHLORIDE 0.9% 1L BAG IV* (20:18)
[2018-03-23 21:09] LABS: ADD UMIC YES; UR ASCORBIC ACID NEGATIVE (NEGATIVE); UR BILIRUBIN (Dip) NEGATIVE (NEGATIVE); UR BLOOD (Dip) NEGATIVE (NEGATIVE); UR CLARITY SLIGHTLY CLOUDY (CLEAR); UR COLOR AMBER (YELLOW); UR GLUCOSE (Dip) NEGATIVE (NEGATIVE); UR KETONES (Dip) TRACE mg/dL (NEGATIVE); UR LEUKOCYTE ESTERASE (Dip) NEGATIVE Leu/ul (NEGATIVE); UR MUCUS FEW /HPF (NONE SEEN); UR NITRITE (Dip) NEGATIVE (NEGATIVE); UR RBC 4 /HPF (0-5); UR SPECIFIC GRAVITY (Dip) 1.024 (1.003-1.030); UR TOTAL PROTEIN (Dip) 1+ mg/dl (NEGATIVE); UR UROBILINOGEN (Dip) 1+ mg/dL (NEGATIVE); UR WBC 1 /HPF (0-5)
[2018-03-23] MEDS: VANCOMYCIN 1 GM (PMX) 250 ML IVPB (21:19)
[2018-03-23 21:40] LABS: LACTIC ACID 1.1 mmol/L (0.5-2.0)
[2018-03-23] MEDS ORDERED: ACETAMINOPHEN 325 MG TAB PO (23:30)
[2018-03-23] MEDS ORDERED: ONDANSETRON 4 MG INJ IV (23:30)
[2018-03-23] MEDS ORDERED: LORAZEPAM 2 MG INJ (23:53)
[2018-03-23] MEDS: LORAZEPAM 2 MG INJ IV (23:56)
[2018-03-24] MEDS ORDERED: NACL 0.9% 3 ML SYG IV
[2018-03-24] MEDS ORDERED: BISACODYL (EC) 5 MG TAB PO
[2018-03-24] MEDS ORDERED: DOCUSATE SODIUM 100 MG CAP PO
[2018-03-24] MEDS ORDERED: VANCOMYCIN IV PER PHARMACY XX
[2018-03-24] MEDS: SOD CHLORIDE 0.9% 1,000 ML IV (01:28)
[2018-03-24] MEDS: BACLOFEN 10 MG TAB PO ×2 (01:29→08:23)
[2018-03-24] MEDS: HEPARIN 5,000 UNIT/0.5 ML VIAL SC ×2 (01:42→07:55)
[2018-03-24] MEDS ORDERED: PENDING SANTYL ORDER FOR WOUND CARE XX (05:00)
[2018-03-24 05:39] LABS: ADD MAN DIFF? NO
[2018-03-24] MEDS: VANCOMYCIN 1.5 GM in SOD CHLORIDE 0.9% 250 ML IVPB ×2 (05:43→18:18)
[2018-03-24 05:47] LABS: WHITE BLOOD COUNT 5.8 10^3/ul (4.8-10.8)
[2018-03-24 05:47] LABS: BASOPHILS % 0.5 % (0.0-2.0); EOSINOPHILS # 0.2 10^3/ul (0.0-0.5); EOSINOPHILS % 2.8 % (0.0-7.0); HEMATOCRIT 27.8 % (42.0-52.0); HEMOGLOBIN 8.6 g/dl (14.0-18.0); LYMPHOCYTES # 1.1 10^3/ul (0.8-2.9); LYMPHOCYTES % 18.2 % (15.0-51.0); MEAN CORPUSCULAR HEMOGLOBIN 22.6 pg (29.0-33.0); MEAN CORPUSCULAR HGB CONC 30.9 g/dl (32.0-37.0); MEAN CORPUSCULAR VOLUME 73.2 fl (82.0-101.0); MEAN PLATELET VOLUME 9.1 fl (7.4-10.4); MONOCYTE # 0.6 10^3/ul (0.3-0.9); NEUTROPHILS % 68.2 % (39.0-77.0); PLATELET COUNT 344 10^3/UL (140-415); RED CELL DISTRIBUTION WIDTH 17.8 % (11.5-14.5)
[2018-03-24 06:06] LABS: ALANINE AMINOTRANSFERASE 22 IU/L (13-69); ALBUMIN 2.8 g/dl (3.3-4.9); ALBUMIN/GLOBULIN RATIO 0.68; ALKALINE PHOSPHATASE 104 IU/L (42-121); ANION GAP 12 (8-16); ASPARTATE AMINO TRANSFERASE 30 IU/L (15-46); BILIRUBIN,INDIRECT 0.3 mg/dl (0-1.1); BILIRUBIN,TOTAL 0.3 mg/dl (0.2-1.3); BLOOD UREA NITROGEN 6 mg/dl (7-20); CARBON DIOXIDE 23 mmol/L (21-31); CHLORIDE 108 mmol/L (97-110); CREATININE 0.47 mg/dl (0.61-1.24); GLUCOSE 96 mg/dl (70-220); MAGNESIUM 1.9 mg/dl (1.7-2.5); POTASSIUM 3.3 mmol/L (3.5-5.1); SODIUM 140 mmol/L (135-144); TOTAL PROTEIN 6.9 g/dl (6.1-8.1)
[2018-03-24] MEDS: PIPER-TAZO 3.375 GM IV (PMX) 100 ML IVPB ×4 (08:00→23:44)
[2018-03-24] MEDS: QUETIAPINE 100 MG TAB PO (08:22)
[2018-03-24] MEDS: GABAPENTIN 300 MG CAP PO (08:23)
[2018-03-24] MEDS: ZINC SULFATE 220 MG CAP PO (08:23)
[2018-03-24 08:53] LABS: IRON 29 ug/dl (35-150)
[2018-03-24 09:02] LABS: % IRON SATURATION 15 % SAT (22-52); TOTAL IRON BINDING CAPACITY 191 ug/dl (241-421)
[2018-03-24] MEDS: LORAZEPAM 2 MG INJ IV (14:55)
[2018-03-24 17:33] LABS: C-REACTIVE PROTEIN 16.9 mg/dl (0.0-0.9)
[2018-03-24 18:03] LABS: ERYTHROCYTE SEDIMENTATION RATE 74 mm/Hr (0-15)
[2018-03-25] MEDS: VANCOMYCIN 1.5 GM in SOD CHLORIDE 0.9% 250 ML IVPB ×2 (04:23→17:42)
[2018-03-25] MEDS: PIPER-TAZO 3.375 GM IV (PMX) 100 ML IVPB ×4 (06:52→23:47)
[2018-03-25] MEDS: ZINC SULFATE 220 MG CAP PO (10:27)
[2018-03-25] MEDS: QUETIAPINE 100 MG TAB PO (10:27)
[2018-03-25] MEDS: ENOXAPARIN 30 MG/0.3 ML SYG SC (10:32)
[2018-03-25 16:58] LABS: VANCOMYCIN,TROUGH 16.1 ug/ml (10.0-20.0)
[2018-03-26 01:57] LABS: BARBITURATES Negative (NEGATIVE); BENZODIAZEPINES Negative (NEGATIVE); COCAINE Negative (NEGATIVE); OPIATES Negative (NEGATIVE)
[2018-03-26 02:01] LABS: AMPHETAMINE/METHAMPHETAMINE Positive (NEGATIVE)
[2018-03-26 02:31] LABS: CANNABINOIDS Negative (NEGATIVE)
[2018-03-26] MEDS: VANCOMYCIN 1.25 GM in SOD CHLORIDE 0.9% 250 ML IVPB ×2 (04:02→18:42)
[2018-03-26] MEDS: PIPER-TAZO 3.375 GM IV (PMX) 100 ML IVPB ×3 (06:51→17:55)
[2018-03-26 06:56] LABS: BLOOD UREA NITROGEN 4 mg/dl (7-20)
[2018-03-26] MEDS: ZINC SULFATE 220 MG CAP PO (09:28)
[2018-03-26] MEDS: POTASSIUM CHLORIDE (SR) 20 MEQ TAB PO (09:28)
[2018-03-26] MEDS: QUETIAPINE 100 MG TAB PO (09:28)
[2018-03-26] MEDS: ENOXAPARIN 30 MG/0.3 ML SYG SC (09:31)
[2018-03-27] MEDS: PIPER-TAZO 3.375 GM IV (PMX) 100 ML IVPB ×4 (01:00→11:30)
[2018-03-27] MEDS: VANCOMYCIN 1.25 GM in SOD CHLORIDE 0.9% 250 ML IVPB ×2 (04:06→17:43)
[2018-03-27 06:07] LABS: ANION GAP 8 (8-16); BLOOD UREA NITROGEN 3 mg/dl (7-20); CARBON DIOXIDE 27 mmol/L (21-31); CHLORIDE 112 mmol/L (97-110); CREATININE 0.67 mg/dl (0.61-1.24); GLUCOSE 91 mg/dl (70-220); POTASSIUM 3.6 mmol/L (3.5-5.1); SODIUM 143 mmol/L (135-144)
[2018-03-27] MEDS: QUETIAPINE 100 MG TAB PO (08:00)
[2018-03-27] MEDS: ZINC SULFATE 220 MG CAP PO (08:00)
[2018-03-27] MEDS: ENOXAPARIN 30 MG/0.3 ML SYG SC (08:05)
[2018-03-27] MEDS: MEROPENEM 1 GM/50ML(PMX) 50 ML IVPB ×2 (16:38→21:20)
[2018-03-28] MEDS: MEROPENEM 1 GM/50ML(PMX) 50 ML IVPB ×3 (04:57→21:20)
[2018-03-28 05:09] LABS: ADD MAN DIFF? NO; BASOPHILS % 0.4 % (0.0-2.0); EOSINOPHILS # 0.3 10^3/ul (0.0-0.5); EOSINOPHILS % 5.4 % (0.0-7.0); HEMATOCRIT 28.9 % (42.0-52.0); HEMOGLOBIN 8.8 g/dl (14.0-18.0); LYMPHOCYTES # 1.3 10^3/ul (0.8-2.9); LYMPHOCYTES % 26.3 % (15.0-51.0); MEAN CORPUSCULAR HEMOGLOBIN 22.7 pg (29.0-33.0); MEAN CORPUSCULAR HGB CONC 30.4 g/dl (32.0-37.0); MEAN CORPUSCULAR VOLUME 74.7 fl (82.0-101.0); MEAN PLATELET VOLUME 8.4 fl (7.4-10.4); MONOCYTE # 0.3 10^3/ul (0.3-0.9); MONOCYTES % 5.6 % (0.0-11.0); NEUTROPHILS % 61.9 % (39.0-77.0); PLATELET COUNT 460 10^3/UL (140-415); RED BLOOD COUNT 3.87 10^6/ul (4.70-6.10); RED CELL DISTRIBUTION WIDTH 18.6 % (11.5-14.5)
[2018-03-28 05:09] LABS: WHITE BLOOD COUNT 4.8 10^3/ul (4.8-10.8)
[2018-03-28 05:39] LABS: VANCOMYCIN,TROUGH 16.3 ug/ml (10.0-20.0)
[2018-03-28 05:46] LABS: ANION GAP 7 (8-16); BLOOD UREA NITROGEN 7 mg/dl (7-20); CALCIUM 8.2 mg/dl (8.4-10.2); CARBON DIOXIDE 30 mmol/L (21-31); CHLORIDE 110 mmol/L (97-110); CREATININE 0.74 mg/dl (0.61-1.24); GLUCOSE 96 mg/dl (70-220); MAGNESIUM 1.8 mg/dl (1.7-2.5); POTASSIUM 3.6 mmol/L (3.5-5.1); SODIUM 143 mmol/L (135-144)
[2018-03-28] MEDS: VANCOMYCIN 1.25 GM in SOD CHLORIDE 0.9% 250 ML IVPB (05:51)
[2018-03-28] MEDS: ZINC SULFATE 220 MG CAP PO (09:00)
[2018-03-28] MEDS: QUETIAPINE 100 MG TAB PO (09:00)
[2018-03-28] MEDS: ENOXAPARIN 30 MG/0.3 ML SYG SC (09:00)
[2018-03-28] MEDS ORDERED: LIDOCAINE 1% (MDV) 20 ML INJ (10:58)
[2018-03-28] MEDS ORDERED: FENTAnyl 50 MCG/ML VIAL (11:21)
[2018-03-28] MEDS ORDERED: MIDAZOLAM 1 MG/ML 2 ML INJ (11:21)
[2018-03-28] MEDS ORDERED: hydrALAzine 20 MG INJ IV (12:30)
[2018-03-28] MEDS ORDERED: EPHEDrine SULFATE 50 MG/5 ML SYG IV (12:30)
[2018-03-28] MEDS ORDERED: METOCLOPRAMIDE 10 MG INJ IV (12:30)
[2018-03-28] MEDS ORDERED: DIPHENHYDRAMINE 50 MG INJ IV (12:30)
[2018-03-28] MEDS ORDERED: ONDANSETRON 4 MG INJ IV (12:30)
[2018-03-28] MEDS ORDERED: MEPERIDINE 25 MG INJ IV (12:30)
[2018-03-28] MEDS ORDERED: ALBUTEROL 0.083% (NEB) 2.5 MG/3 ML AMP HHN (12:30)
[2018-03-28] MEDS ORDERED: LABETALOL HCL 20MG INJ IV (12:30)
[2018-03-28] MEDS ORDERED: MIDAZOLAM 1 MG/ML 2 ML INJ IV (12:30)
[2018-03-28] MEDS: hydrALAzine 20 MG INJ IV (12:48)
[2018-03-28] MEDS: DAPTOMYCIN 800 MG in SOD CHLORIDE 0.9% 100 ML IVPB (16:53)
[2018-03-29] MEDS: MEROPENEM 1 GM/50ML(PMX) 50 ML IVPB ×3 (05:42→21:02)
[2018-03-29 06:24] LABS: CREATINE KINASE 42 IU/L (23-200)
[2018-03-29] MEDS: ZINC SULFATE 220 MG CAP PO (10:13)
[2018-03-29] MEDS: QUETIAPINE 100 MG TAB PO (10:13)
[2018-03-29] MEDS: ACETAMINOPHEN 325 MG TAB PO (10:33)
[2018-03-29] MEDS: ENOXAPARIN 30 MG/0.3 ML SYG SC (11:39)
[2018-03-29] MEDS: DAPTOMYCIN 800 MG in SOD CHLORIDE 0.9% 100 ML IVPB (16:59)
[2018-03-30] MEDS: MEROPENEM 1 GM/50ML(PMX) 50 ML IVPB ×3 (06:01→21:51)
[2018-03-30] MEDS: QUETIAPINE 100 MG TAB PO (08:35)
[2018-03-30] MEDS: ZINC SULFATE 220 MG CAP PO (08:35)
[2018-03-30] MEDS: ACETAMINOPHEN 325 MG TAB PO (08:38)
[2018-03-30] MEDS: ENOXAPARIN 30 MG/0.3 ML SYG SC (10:59)
[2018-03-30 12:52] LABS: PROCALCITONIN 0.22 ng/mL (<0.10)
[2018-03-30 14:15] LABS: BLOOD UREA NITROGEN 14 mg/dl (7-20)
[2018-03-30 14:15] LABS: CREATININE 0.76 mg/dl (0.61-1.24)
[2018-03-30] MEDS: DAPTOMYCIN 800 MG in SOD CHLORIDE 0.9% 100 ML IVPB (16:17)
[2018-03-31] MEDS: MEROPENEM 1 GM/50ML(PMX) 50 ML IVPB ×3 (05:06→21:22)
[2018-03-31] MEDS: ZINC SULFATE 220 MG CAP PO (08:41)
[2018-03-31] MEDS: QUETIAPINE 100 MG TAB PO (08:41)
[2018-03-31] MEDS: ENOXAPARIN 30 MG/0.3 ML SYG SC (08:43)
[2018-03-31] MEDS: DAPTOMYCIN 800 MG in SOD CHLORIDE 0.9% 100 ML IVPB (16:30)
[2018-04-01] MEDS: MEROPENEM 1 GM/50ML(PMX) 50 ML IVPB ×3 (07:00→22:35)
[2018-04-01] MEDS: ZINC SULFATE 220 MG CAP PO (09:07)
[2018-04-01] MEDS: QUETIAPINE 100 MG TAB PO (09:07)
[2018-04-01] MEDS: ENOXAPARIN 30 MG/0.3 ML SYG SC (09:10)
[2018-04-01] MEDS: ACETAMINOPHEN 325 MG TAB PO ×2 (13:14→22:44)
[2018-04-01] MEDS: DAPTOMYCIN 800 MG in SOD CHLORIDE 0.9% 100 ML IVPB (16:03)
[2018-04-02] MEDS: MEROPENEM 1 GM/50ML(PMX) 50 ML IVPB ×3 (05:43→21:48)
[2018-04-02] MEDS: ZINC SULFATE 220 MG CAP PO (09:02)
[2018-04-02] MEDS: QUETIAPINE 100 MG TAB PO (09:02)
[2018-04-02] MEDS: ENOXAPARIN 30 MG/0.3 ML SYG SC (09:03)
[2018-04-02] MEDS: DAPTOMYCIN 800 MG in SOD CHLORIDE 0.9% 100 ML IVPB (16:21)
[2018-04-03] MEDS: MEROPENEM 1 GM/50ML(PMX) 50 ML IVPB ×3 (05:15→21:00)
[2018-04-03 07:48] LABS: BLOOD UREA NITROGEN 15 mg/dl (7-20)
[2018-04-03 07:48] LABS: CREATININE 0.64 mg/dl (0.61-1.24)
[2018-04-03] MEDS: QUETIAPINE 100 MG TAB PO ×3 (09:00→21:01)
[2018-04-03] MEDS: ENOXAPARIN 30 MG/0.3 ML SYG SC (09:21)
[2018-04-03] MEDS: ZINC SULFATE 220 MG CAP PO (09:41)
[2018-04-03] MEDS: ACETAMINOPHEN 325 MG TAB PO (12:41)
[2018-04-03] MEDS: BACLOFEN 10 MG TAB GTB ×2 (14:36→21:01)
[2018-04-03] MEDS: DAPTOMYCIN 800 MG in SOD CHLORIDE 0.9% 100 ML IVPB (17:07)
[2018-04-03] MEDS: GABAPENTIN 300 MG CAP GTB (21:01)
[2018-04-04] MEDS: MEROPENEM 1 GM/50ML(PMX) 50 ML IVPB ×3 (05:18→22:16)
[2018-04-04] MEDS: ZINC SULFATE 220 MG CAP PO (09:04)
[2018-04-04] MEDS: GABAPENTIN 300 MG CAP GTB ×3 (09:05→20:32)
[2018-04-04] MEDS: BACLOFEN 10 MG TAB GTB ×2 (09:05→20:32)
[2018-04-04] MEDS: ENOXAPARIN 30 MG/0.3 ML SYG SC (09:11)
[2018-04-04] MEDS: ACETAMINOPHEN 325 MG TAB PO (19:43)
[2018-04-04] MEDS: QUETIAPINE 100 MG TAB PO (20:32)
[2018-04-04] MEDS: DAPTOMYCIN 800 MG in SOD CHLORIDE 0.9% 100 ML IVPB (22:15)
[2018-04-05] MEDS: MEROPENEM 1 GM/50ML(PMX) 50 ML IVPB ×3 (06:24→21:05)
[2018-04-05] MEDS: ACETAMINOPHEN 325 MG TAB PO (06:24)
[2018-04-05 06:47] LABS: CREATINE KINASE 40 IU/L (23-200)
[2018-04-05] MEDS: BACLOFEN 10 MG TAB GTB ×2 (09:00→21:04)
[2018-04-05] MEDS: GABAPENTIN 300 MG CAP GTB ×3 (09:00→21:04)
[2018-04-05] MEDS: ZINC SULFATE 220 MG CAP PO (09:00)
[2018-04-05 11:14] LABS: ERYTHROCYTE SEDIMENTATION RATE 49 mm/Hr (0-15)
[2018-04-05 11:30] LABS: C-REACTIVE PROTEIN 1.2 mg/dl (0.0-0.9)
[2018-04-05] MEDS: ENOXAPARIN 30 MG/0.3 ML SYG SC (12:51)
[2018-04-05] MEDS: DAPTOMYCIN 800 MG in SOD CHLORIDE 0.9% 100 ML IVPB (16:56)
[2018-04-05] MEDS: QUETIAPINE 100 MG TAB PO (21:05)
[2018-04-06] MEDS: MEROPENEM 1 GM/50ML(PMX) 50 ML IVPB ×3 (05:59→21:42)
[2018-04-06] MEDS: GABAPENTIN 300 MG CAP GTB ×3 (09:26→21:42)
[2018-04-06] MEDS: BACLOFEN 10 MG TAB GTB ×2 (09:27→21:42)
[2018-04-06] MEDS: ZINC SULFATE 220 MG CAP PO (09:27)
[2018-04-06] MEDS: ENOXAPARIN 30 MG/0.3 ML SYG SC (09:28)
[2018-04-06] MEDS: SODIUM HYPOCHLORITE (1/40) 1 APPLIC BTL IRR (10:40)
[2018-04-06] MEDS: DAPTOMYCIN 800 MG in SOD CHLORIDE 0.9% 100 ML IVPB (16:27)
[2018-04-06] MEDS: ONDANSETRON 4 MG INJ IV (20:55)
[2018-04-06] MEDS: QUETIAPINE 100 MG TAB PO (21:42)
[2018-04-07] MEDS: MEROPENEM 1 GM/50ML(PMX) 50 ML IVPB ×3 (05:54→22:30)
[2018-04-07] MEDS: ACETAMINOPHEN 325 MG TAB PO (06:17)
[2018-04-07] MEDS: ZINC SULFATE 220 MG CAP PO (09:57)
[2018-04-07] MEDS: BACLOFEN 10 MG TAB GTB ×2 (09:57→22:31)
[2018-04-07] MEDS: GABAPENTIN 300 MG CAP GTB ×3 (09:57→22:31)
[2018-04-07] MEDS: SODIUM HYPOCHLORITE (1/40) 1 APPLIC BTL IRR (09:57)
[2018-04-07] MEDS: ENOXAPARIN 30 MG/0.3 ML SYG SC (10:02)
[2018-04-07] MEDS: DAPTOMYCIN 800 MG in SOD CHLORIDE 0.9% 100 ML IVPB (16:36)
[2018-04-07] MEDS: QUETIAPINE 100 MG TAB PO (22:31)
[2018-04-08] MEDS: ACETAMINOPHEN 325 MG TAB PO (03:49)
[2018-04-08] MEDS: MEROPENEM 1 GM/50ML(PMX) 50 ML IVPB ×3 (05:20→22:02)
[2018-04-08 06:19] LABS: CREATININE 0.65 mg/dl (0.61-1.24)
[2018-04-08 06:19] LABS: BLOOD UREA NITROGEN 28 mg/dl (7-20)
[2018-04-08] MEDS: BACLOFEN 10 MG TAB GTB ×2 (08:25→20:44)
[2018-04-08] MEDS: ZINC SULFATE 220 MG CAP PO (08:25)
[2018-04-08] MEDS: GABAPENTIN 300 MG CAP GTB ×3 (08:25→20:44)
[2018-04-08] MEDS: ENOXAPARIN 30 MG/0.3 ML SYG SC (08:29)
[2018-04-08] MEDS: HYDROCODONE/APAP (5/325) TAB PO (09:58)
[2018-04-08] MEDS: DAPTOMYCIN 800 MG in SOD CHLORIDE 0.9% 100 ML IVPB (16:37)
[2018-04-08] MEDS: SODIUM HYPOCHLORITE (1/40) 1 APPLIC BTL IRR (17:08)
[2018-04-08] MEDS: QUETIAPINE 100 MG TAB PO (20:44)
[2018-04-09] MEDS: MEROPENEM 1 GM/50ML(PMX) 50 ML IVPB ×3 (05:38→21:49)
[2018-04-09] MEDS: BACLOFEN 10 MG TAB GTB ×2 (08:44→20:29)
[2018-04-09] MEDS: GABAPENTIN 300 MG CAP GTB ×3 (08:44→20:29)
[2018-04-09] MEDS: ZINC SULFATE 220 MG CAP PO (08:44)
[2018-04-09] MEDS: ENOXAPARIN 30 MG/0.3 ML SYG SC (08:46)
[2018-04-09] MEDS: SODIUM HYPOCHLORITE (1/40) 1 APPLIC BTL IRR (08:46)
[2018-04-09] MEDS: DAPTOMYCIN 800 MG in SOD CHLORIDE 0.9% 100 ML IVPB (16:11)
[2018-04-09] MEDS: QUETIAPINE 100 MG TAB PO (20:29)
[2018-04-10] MEDS: MEROPENEM 1 GM/50ML(PMX) 50 ML IVPB (05:34)
[2018-04-10] MEDS: HYDROCODONE/APAP (5/325) TAB PO (06:49)
[2018-04-10] MEDS: GABAPENTIN 300 MG CAP GTB ×3 (08:23→19:59)
[2018-04-10] MEDS: BACLOFEN 10 MG TAB GTB ×2 (08:24→19:59)
[2018-04-10] MEDS: SODIUM HYPOCHLORITE (1/40) 1 APPLIC BTL IRR (08:32)
[2018-04-10] MEDS: ZINC SULFATE 220 MG CAP PO (08:32)
[2018-04-10] MEDS: ENOXAPARIN 30 MG/0.3 ML SYG SC (08:55)
[2018-04-10] MEDS: QUETIAPINE 100 MG TAB PO (19:59)
[2018-04-10] MEDS: ACETAMINOPHEN 325 MG TAB PO (19:59)
[2018-04-11] MEDS: GABAPENTIN 300 MG CAP GTB ×3 (08:44→21:07)
[2018-04-11] MEDS: ZINC SULFATE 220 MG CAP PO (08:44)
[2018-04-11] MEDS: BACLOFEN 10 MG TAB GTB ×2 (08:44→21:06)
[2018-04-11] MEDS: SODIUM HYPOCHLORITE (1/40) 1 APPLIC BTL IRR (08:45)
[2018-04-11] MEDS: ENOXAPARIN 30 MG/0.3 ML SYG SC (08:47)
[2018-04-11] MEDS: ACETAMINOPHEN 325 MG TAB PO ×2 (11:02→19:38)
[2018-04-11] MEDS: QUETIAPINE 100 MG TAB PO (21:07)
[2018-04-12] MEDS: LOPERAMIDE 2 MG CAP PO ×2 (07:10→15:17)
[2018-04-12] MEDS: SODIUM HYPOCHLORITE (1/40) 1 APPLIC BTL IRR (08:17)
[2018-04-12] MEDS: GABAPENTIN 300 MG CAP GTB ×2 (08:17→13:20)
[2018-04-12] MEDS: BACLOFEN 10 MG TAB GTB (08:18)
[2018-04-12] MEDS: ZINC SULFATE 220 MG CAP PO (08:18)
[2018-04-12] MEDS: ENOXAPARIN 30 MG/0.3 ML SYG SC (08:21)
[2018-04-12] MEDS: ACETAMINOPHEN 325 MG TAB PO (13:26)
== END 2018-04-12 20:45 | DRG 853 ==
LOC: 6WM 23:04 → 2NE 04-01 18:50 → 6WM 03-24 00:23 → E/R 18:54 → 6WM 03-24 18:29
PROC: 0JBR0ZZ Excision of Left Foot Subcutaneous Tissue and Fascia, Open Approach (ICD-10-PCS; principal; 2018-03-28 11:14)
PROC: 0KBV0ZZ Excision of Right Foot Muscle, Open Approach (ICD-10-PCS; 2018-03-28 11:14)
PROC: 0KBP0ZZ Excision of Left Hip Muscle, Open Approach (ICD-10-PCS; 2018-03-28 11:14)
PROC: 0QBJ0ZZ Excision of Right Fibula, Open Approach (ICD-10-PCS; 2018-03-28 11:14)
PROC: 0JBN0ZZ Excision of Right Lower Leg Subcutaneous Tissue and Fascia, Open Approach (ICD-10-PCS; 2018-03-28 11:14)
PROC: 0HRKXK3 Replacement of Right Lower Leg Skin with Nonautologous Tissue Substitute, Full Thickness, External Approach (ICD-10-PCS; 2018-03-28 11:14)
DX: A41.9 Sepsis, unspecified organism (principal); L89.894 Pressure ulcer of other site, stage 4; L89.154 Pressure ulcer of sacral region, stage 4; L89.623 Pressure ulcer of left heel, stage 3; L89.613 Pressure ulcer of right heel, stage 3; L89.523 Pressure ulcer of left ankle, stage 3; L89.513 Pressure ulcer of right ankle, stage 3; G93.41 Metabolic encephalopathy; G82.20 Paraplegia, unspecified; L03.116 Cellulitis of left lower limb; L03.115 Cellulitis of right lower limb; N39.0 Urinary tract infection, site not specified; Z86.718 Personal history of other venous thrombosis and embolism; Z95.828 Presence of other vascular implants and grafts; S24.154S Other incomplete lesion at T11-T12 level of thoracic spinal cord, sequela; N31.9 Neuromuscular dysfunction of bladder, unspecified; F17.200 Nicotine dependence, unspecified, uncomplicated; F15.10 Other stimulant abuse, uncomplicated; D63.8 Anemia in other chronic diseases classified elsewhere; E66.01 Morbid (severe) obesity due to excess calories; Z68.38 Body mass index [BMI] 38.0-38.9, adult; E83.51 Hypocalcemia; E88.09 Other disorders of plasma-protein metabolism, not elsewhere classified; D69.6 Thrombocytopenia, unspecified; Z22.322 Carrier or suspected carrier of Methicillin resistant Staphylococcus aureus; B96.5 Pseudomonas (aeruginosa) (mallei) (pseudomallei) as the cause of diseases classified elsewhere; B96.20 Unspecified Escherichia coli [E. coli] as the cause of diseases classified elsewhere; B95.2 Enterococcus as the cause of diseases classified elsewhere; B96.1 Klebsiella pneumoniae [K. pneumoniae] as the cause of diseases classified elsewhere; B95.62 Methicillin resistant Staphylococcus aureus infection as the cause of diseases classified elsewhere; Z16.21 Resistance to vancomycin; Z16.12 Extended spectrum beta lactamase (ESBL) resistance
CPT/HCPCS: 71045; 73610-50; 80048; 80053; 80202; 80307; 81001; 82550; 82565; 82728; 83540; 83605; 83735; 84145; 84484; 84520; 85025; 85610; 85651; 85730; 86140; 87040; 87070; 87075; 87081; 87086; 87102; 88304; 88305; 88311; 93005; 93922; 96374; 96375; 99285-25